=== PATIENT | female | born 1975 | race Caucasian/White ===

== ENCOUNTER 2016-05-18 10:07 | Day surgery (SDC) | payer BC ==
--- NOTE | ~2016-05-18 | EGD ---
EGD REPORT [facility] [address] [address] NAME: SKYLAR WELLS : [birth year] STATUS : REG [facility]#: [id number] AGE: 41 ADM/REG DATE : 05/18/16 MR#: [id number] REPORT SERV DATE: 05/18/16 DICTATED BY: BRISA DE LA CRUZ DATE: 05/18/16 REPORT STATUS : Draft TRANSCRIBED BY: [facility] DATE: 05/18/16 Endoscopy Center Patient Name: Skylar Wells Date of : 1975 Attending MD: BRISA DE LA CRUZ MD Procedure Date No Time: 05/18/2016 Procedure: Colonoscopy Indications: Rectal bleeding, FH of Colonic Polyps - 1st degree relative Referring MD: LAZARUS JAVED MD Medicines: as per anesthesia Complications: No immediate complications. Procedure: Pre-Anesthesia Assessment: - ASA Grade Assessment: II - A patient with mild systemic disease. After I obtained informed consent, the scope was passed under direct vision. Throughout the procedure, the patient's blood pressure, pulse, and oxygen saturations were monitored continuously. The PCF [id number] was introduced through the anus and advanced to the cecum, identified by appendiceal orifice and ileocecal valve. The colonoscopy was somewhat difficult due to significant looping and a tortuous colon. The patient tolerated the procedure. The quality of the bowel preparation was adequate to identify polyps. Findings: The perianal and digital rectal examinations were normal. Internal hemorrhoids were found during endoscopy and were mild. Impression: - Internal hemorrhoids. Recommendation: - Repeat colonoscopy in 10 years for surveillance. Procedure Code(s): --- Professional --- 53990, Colonoscopy, flexible, proximal to splenic flexure; diagnostic, with or without collection of specimen(s) by brushing or washing, with or without colon decompression (separate procedure) Diagnosis Code(s): --- Professional --- K64.8, Other hemorrhoids K62.5, Hemorrhage of anus and rectum Z83.71, Family history of colonic polyps EGD REPORT [facility] [id number] [id number] NAME: SKYLAR WELLS : [birth year] STATUS : REG [facility] PAT#: [id number] AGE: 41 ADM/REG DATE : 05/18/16 MR#: [id number] REPORT SERV DATE: 05/18/16 DICTATED BY: BRISA DE LA CRUZ. DATE: 05/18/16 REPORT STATUS : Draft TRANSCRIBED BY: [facility] DATE: 05/18/16 CPT copyright 2013 [employer]. All rights reserved. The codes documented in this report are preliminary and upon ob/gyn doctor review may be revised to meet current compliance requirements. BRISA DE LA CRUZ MD 05/18/2016 1:12 PM This report has been signed electronically. Number of Addenda: 0 Note Initiated On: 05/18/2016 12:31 PM Scope Withdrawal Time 0 hours 6 minutes 20 seconds [id number]
[~2016-05-18 10:07] MED LIST: MULTIPLE VIT PO; NAP500 PO
== END 2016-05-18 23:59 | disposition home or self-care (01) ==
LOC: DMU 10:07
PROVIDERS: Internal Medicine Gastroenterology
PROC: 0DJD8ZZ Inspection of Lower Intestinal Tract, Via Natural or Artificial Opening Endoscopic (ICD-10-PCS; principal; 2016-05-18 11:30)
DX: K64.8 Other hemorrhoids (principal); K62.5 Hemorrhage of anus and rectum; Z83.71 Family history of colonic polyps; Z88.8 Allergy status to other drugs, medicaments and biological substances; Z98.890 Other specified postprocedural states; Z90.89 Acquired absence of other organs; F41.9 Anxiety disorder, unspecified; M19.90 Unspecified osteoarthritis, unspecified site; Z87.891 Personal history of nicotine dependence; Z79.899 Other long term (current) drug therapy; Z79.1 Long term (current) use of non-steroidal anti-inflammatories (NSAID)
CPT/HCPCS: 84703